=== PATIENT | male | born 1980 | race Caucasian/White ===

== ENCOUNTER 2017-09-27 18:12 | Emergency (ER) | payer OTHER ==
[~2017-09-27] VITALS: Ht 185.4 cm; Wt 108.9 kg
[~2017-09-27 18:12] MED LIST: ALPRAZOLAM 0.0.25 M1 PO; ALPRAZOLAM1 M1 PO; AUGMENTIN 875875 MG PO; FISHOIL PO; FLEXERIL; HYDROCHLOROTH12.5 MG PO; HYDROCHLOROTHIA25 M2; HYDROCODON-ACE1 EAC5; HYDROCODON-ACE1 EAC5 PO; K-DUR10 MEQ PO; LIDOCAINE 22 %/30 GM; LIDODERM 5%1 PATC1; LISINOPRIL10 MG; LISINOPRIL20 MG PO; MEDROLDOSEPACK PO; MULTIVITAMINS PO; OMNARIS12.5 GM; PERCOCET 7.5-31 EACH PO; PRAVACHOL40 MG; PREDNISONE 20 M20 M1 PO; PRILOSEC 20 MG20 MG; ROBAXIN 750 MG750 MG PO; TOPROL XL100 MG; TRIAMCINOLONE A80 G2; VICODIN 5-5001 EACH PO; XANAX1 MG; ZOCOR 10 MG TAB10 M1 PO; ZOLOFT50 MG
[2017-09-27] MEDS ORDERED: ZYRTEC 10 MG TA10 MG PO (18:27)
[2017-09-27] MEDS ORDERED: PEPCID40 MG PO (18:27)
[2017-09-27] MEDS ORDERED: PREDNISONE 20 M20 M1 PO (18:27)
[2017-09-27 19:32] VITALS: BP 128/88
== END 2017-09-27 19:33 | disposition home or self-care (01) ==
LOC: M.ERS 18:12
DX: L50.9 Urticaria, unspecified (principal); I10 Essential (primary) hypertension; F41.9 Anxiety disorder, unspecified; M19.90 Unspecified osteoarthritis, unspecified site; M54.30 Sciatica, unspecified side; G89.29 Other chronic pain; Z98.890 Other specified postprocedural states; Z88.1 Allergy status to other antibiotic agents; Z88.8 Allergy status to other drugs, medicaments and biological substances

== ENCOUNTER 2019-10-13 20:57 | Emergency (ER) | payer BC ==
[~2019-10-13] VITALS: Ht 185.4 cm; Wt 109.3 kg
[~2019-10-13 20:57] MED LIST changes: +PEPCID40 MG PO; +ZYRTEC 10 MG TA10 MG PO
[2019-10-13] MEDS ORDERED: COZAAR 25 MG TA25 M1 PO (21:10)
[2019-10-13] MEDS ORDERED: PRAVACHOL40 M1 PO (21:10)
[2019-10-13] MEDS ORDERED: OTEZLA30 MG PO ×2 (21:12)
[2019-10-13 21:47] LABS: ABSOLUTE LYMPHOCYTES 2.2 thou/uL (0.8-5.3); ABSOLUTE MONOCYTES 0.4 thou/uL (0.0-1.2); ABSOLUTE NEUTROPHILS 3.4 thou/uL (1.6-8.1); BASOPHILS 0.2 %; EOSINOPHILS 0.7 %; HEMATOCRIT 37.3 % (42.0-52.0); HEMOGLOBIN 13.4 gm/dL (14.0-18.0); LYMPHOCYTES 35.8 %; MCH 32.1 pg (26.0-34.0); MCV 89.2 fL (80.0-100.0); MONOCYTES 6.9 %; NUCLEATED RBCS 0 /100WBC; PLATELET COUNT* 154 thou/uL (150-400); POLYS 56.4 %; RBC 4.18 mil/uL (4.50-6.00); RDW-CV 13.1 % (10.5-14.5); WBC 6.1 thou/uL (4.0-11.0)
[2019-10-13 22:05] LABS: CALCIUM 8.3 mg/dL (8.5-10.1); POTASSIUM 3.3 mmol/L (3.5-5.1); TOTAL BILIRUBIN 0.4 mg/dL (<0.1-1.0); TOTAL PROTEIN 6.8 g/dL (6.4-8.2)
[2019-10-13 22:47] VITALS: BP 116/68
--- NOTE | 2019-10-15 12:26 | EKG ---
[place] [address] ELECTROCARDIOGRAM REPORT Name: REBEL LIMA IV Room: [facility]#: [id number] Admission: 10/13/19 Attend Phys: Discharge: 10/13/19 Date of : 76 Report #: [id number] THIS REPORT FOR: //name// [facility] ED Test Date: 2019-10-13 Test Time: 21:07:20 Pat Name: REBEL TAOIN Department: Room: Gender: M [employer]: [place] : 1980 Requested By: Anabel Patel Order Number: [id number] Sabiha MD: Frederick Almazan Measurements Intervals [place] Rate: 76 P: 55 PA: 165 QRS: 22 QRSD: 101 T: 34 QT: 365 QTc: 411 Interpretive Statements Sinus rhythm Baseline wander in lead(s) V1,V2,V5 Compared to ECG 01/03/2015 19:03:21 Sinus tachycardia no longer present Electronically Signed On 10-15-2019 12:25:47 [employer] DEVEL[employer] by Frederick Almazan [email or web address] <ELECTRONICALLY SIGNED> By: Fredercik Almazan MD, [facility] 10/15/19 1225 06 06 Frederick Almazan MD, FACC /EPI
== END 2019-10-13 22:48 | disposition home or self-care (01) ==
LOC: M.ERS 20:57
PROVIDERS: Emergency Medicine
DX: I10 Essential (primary) hypertension (principal); M19.90 Unspecified osteoarthritis, unspecified site; Z88.1 Allergy status to other antibiotic agents; Z88.8 Allergy status to other drugs, medicaments and biological substances; Z90.89 Acquired absence of other organs; Z90.49 Acquired absence of other specified parts of digestive tract